=== PATIENT | male | born 1930 | race Caucasian/White ===

== ENCOUNTER → 2017-01-04 | Day surgery (SDC) | payer OTHER ==
[2016-12-30 11:19] VITALS: BMI 25.0
[~2017-01-04] VITALS: Ht 170.2 cm; Wt 75.0 kg
[~2017-01-04] MED LIST: ALFU10TA2 PO; B-COTAB18 PO; BICA50TA2 PO; CALC500C70 PO; CLB200 PO; DULO60CA44 PO; FEXO1TAB46 PO; FINA5TAB PO; FLNIN NAE; FLUO0.0543 TD; FLUT0.15; FURO-85 PO; IPRA0.03; IPRA0.03 INTNAS; LATA0.009 OPB; LEVO75TA5 PO; LIDOCAINE HCL 2% 2 ML VIAL (20MG/ML) ONE; MULT-506 PO; NXM/40 PO; OMEP40CA41 PO; OXYC-57 PO; POTA10CA28 PO; PROPOFOL IV EMULSION 10 MG/ML 20 ML VIAL IV ONE; PSYL48.59 PO; RANI300T2 PO; SIMV40TA2 PO; TRAM-10 PO; WARF5TAB90 PO; [UNRECOGNIZED DRUG - CODE] TD; [UNRECOGNIZED DRUG - OTHER] OPB; coQ 10
--- NOTE | 2017-01-04 14:10 | Endo History and Physical ---
History & Physical Date of Service: January 04, 2017. 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 Past Medical History Atrial Fibrillation, Pacemaker, Reflux, High Cholesterol, Hypertension, Thyroid Disease Past Surgical History Hx Cardiac Surgery: No Hx Internal Defibrillator: No Hx Abdominal Surgery: Yes (COLON RESECTION, INGUINAL HERNIA) Hx Post-Op Nausea and Vomiting: No Hx Cancer Surgery: No Hx Thoracic Surgery: No Hx Orthopedic: Yes (RIGHT TKA) Hx Urinary Tract Surgery: No Family History Esophogeal CA Social History Smoking Status: Never Smoker Hx Substance Use: Yes (SEE MED REC) Hx Alcohol Use: Yes (1 GLASS OF WINE DAILY) Allergies Coded Allergies: No Known Allergies (Verified , 12/30/16) Current Medications Reported Home Medications Medications Dose Route/Sig Max Daily Dose Days Date Category Dose Instructions Vitamin B Complex (B-Complex Vitamins) 1 Tab Tab 1 Tab PO QAM 12/30/16 Reported Os-Edgar 500 Plus D (Calcium/Vitamin D) Tab 1 Tab PO QAM 12/30/16 Reported Multivitamin (Multivitamins) Tab 1 Tab PO QAM 12/30/16 Reported Betoptic-S (Betaxolol Hcl) 144 Drops/10 Ml Susp 1 Drop OPB BID 12/30/16 Reported Xalatan 0.005% Oph Rut (Latanoprost) 0.005 % Rut 1 Drops OPB HS 90 12/30/16 Reported Cymbalta (Duloxetine Hcl) 60 Mg Cap 60 Mg PO QAM 12/30/16 Reported Percocet 5MG/325MG (Oxycodone/Acetaminophen) Tab 1-2 Tablets PO Q4-6H PRN 04/25/14 Reported PAIN Rea (Fexofenadine Hcl) 180 Mg Tab 180 Mg PO DAILY 04/25/14 Reported Ipratropium [place] (Ipratropium [place] (Nasal)) 0.03 % Spr 1 [place] INTNAS BID PRN 04/25/14 Reported Micro-K Ext Rel (Potassium Chloride) 10 Meq Capcr 10 Meq PO QAM 04/25/14 Reported Proscar (Finasteride) 5 Mg Tab 5 Mg PO QAM 02/05/14 Reported Lidex 0.05% (Fluocinonide) Oint 1 Appln TD UD PRN 01/14/14 Reported APPLY TO LEGS NEEDED UNDER HOSE FOR RASH [place]/Fs Scalp (Fluocinolone Acetonide) 118 Ml Oil 1 Appln TD UD 01/14/14 Reported APPLY TO SCALP AFTER BATHING Vitamin B Complex (B-Complex Vitamins) 1 Tab Tab 1 Tab PO QAM 07/08/13 Reported Ultram (Tramadol HCl) 50 Mg Tab 50 Mg PO TID PRN 07/08/13 Reported Nexium (Esomeprazole Magnesium) 40 Mg Capcr 40 Mg PO QAM 07/08/13 Reported Levothyroxine Sodium 75 Mcg Tab 75 Mcg PO QAM 07/08/13 Reported Coumadin (Warfarin Sodium) 5 Mg Tab 5 Mg PO UD 03/13/13 Reported TAKES 0.5TAB 6X WEEKLY TAKES 1 TAB ON SUNDAYS Lasix (Furosemide) 20 Mg Tab 20 Mg PO QAM 12/14/12 Reported Uroxatral (Alfuzosin HCl) 10 Mg Tab 10 Mg PO DAILY 12/14/12 Reported TAKE AFTER A MEAL Zantac (Ranitidine HCl) 300 Mg Tab 300 Mg PO HS 04/05/10 Reported Flonase Nasal [place] * (Fluticasone Propionate) Inha 2 Sprays SURAJ DAILY 07/04/07 Reported Zocor (Simvastatin) 40 Mg Tab 40 Mg PO HS 12/02/08 Reported Celebrex * (Celecoxib) 200 Mg Cap 200 Mg PO QPM 12/02/08 Reported Vital Signs Weight (Kilograms): 75 Height (Feet): 5 Height (Inches): 7 Physical Exam General Appearance: WD/WN, no apparent distress Respiratory/Chest: Respiratory effort: no dyspnea Auscultation: breath sounds normal, CTA except as noted, no wheezing Cardiovascular: Apical Impulse: not displaced Heart Auscultation: RRR, normal S1, normal S2 Abdomen: Bowel Sounds: normal Inspection & Palpation: soft, non-distended Assessment and Plan 86 yo presenting for f/u of advanced colon polyp
[2017-01-04 14:20] VITALS: Ht 170.2 cm; Wt 75.0 kg
--- NOTE | 2017-01-04 15:11 | Anesthesiology Progress Note ---
Anesthesia Post Op Note Date & Time January 04, 2017 at 15:10 Vital Signs Pain Intensity: 0 Vital Signs Past 12 Hours Date Time Temp Pulse Resp B/P Pulse Ox O2 Delivery O2 Flow Rate FiO2 01/04/17 14:28 36.4 88 18 155/98 96 Room Air Notes Mental Status: alert / awake / arousable, participated in evaluation Pt Amnestic to Procedure: Yes Nausea / Vomiting: adequately controlled Pain: adequately controlled Airway Patency, RR, SpO2: stable & adequate BP & HR: stable & adequate Hydration State: stable & adequate Anesthetic Complications: no major complications apparent
--- NOTE | 2017-01-04 15:15 | Discharge Instructions ---
Endoscopy Patient Instructions Date / Procedure(s) Performed January 04, 2017. Colonoscopy Allergy Information Coded Allergies: No Known Allergies (Verified , 12/30/16) Discharge Date / Findings January 04, 2017. Normal post surgical anatomy no polyps diverticuli hemorrhoids Ok to restart coumadin Start daily fiber with metamucil, benefiber, one to two scoops daily to regulate bowels Medication Instructions Stopped Medication(s): COUMADIN LAST DOSE 12/30/16 Provider Instructions Activity Restrictions - No exercising or heavy lifting for 24 hours. - Do not drink alcohol the day of the procedure. - Do not drive a car or operate machinery until the day after the procedure. - Do not make any important decisions or sign important papers in 24 hours after the procedure. Following Day: - Return to full activity which may include returning to work/school. Diet Start your diet with liquids and light foods (jello, soup, juice, toast). Then eat your usual diet if not nauseated. Treatment For Common After Affects For mild abdominal pain, bloating, or excessive gas: - Rest - Eat lightly - Lie on right side Follow-Up Information Follow-up with DR RITESH DUDLEY as scheduled Anesthesia Information What You Should Know You have had a procedure that required some medicine to reduce anxiety and discomfort. This treatment is called moderate sedation. After receiving the treatment, you may be sleepy, but you will be able to breathe on your own. The effects of the treatment may last for several hours. Follow these instructions along with Activity/Diet recommendations noted above: * Do NOT do anything where dizziness or clumsiness would be dangerous. * Rest quietly at home today, then you can be up and about tomorrow. * Have a responsible person stay with you the rest of today. * You may have had an I.V. today. If so, you may take the dressing off later today. Recommendations Call your doctor if: * Trouble breathing * Continuous vomiting for more than 24 hours * Temperature above 101 degrees * Severe abdominal pain or bloating * Pain not relieved by pain medicine ordered * There is increased drainage or redness from any incision * A large amount of rectal bleeding greater than 2-3 tablespoons. (If you had a polyp/s removed or have hemorrhoids, a small amount of blood - from the rectum is to be expected.) * You have any unanswered questions or concerns. IN THE EVENT OF A SERIOUS EMERGENCY, GO TO THE NEAREST EMERGENCY ROOM Your discharge instructions were prepared by provider Robert Thomas. Patient Instructions Signature Page Tip Sheldon Patient (or Guardian) Signature/Date: I have read and understand the instructions given to me by my caregivers. Caregiver/RN/Doctor Signature/Date: The above-named patient and/or guardian has received patient instructions on this date. + Original Patient Signature Page (only) stays with chart. Please make copy for patient.
--- NOTE | 2017-01-04 15:35 | GI REPORT ---
Procedure Date: 01/04/2017 2:01 PM Procedure: Colonoscopy Indications: High risk colon cancer surveillance: Personal history of colonic polyps Medicines: General Anesthesia Complications: No immediate complications. Estimated blood loss: None. Estimated Blood Loss: Estimated blood loss: none. Procedure: Pre-Anesthesia Assessment: - Pre-Anesthesia Assessment: - Prior to the procedure, a History and Physical was performed, and patient medications, allergies and sensitivities were reviewed. The patient's tolerance of previous anesthesia was reviewed. Please see [employer] for complete details. - The risks and benefits of the procedure and the sedation options and risks were discussed with the patient. All questions were answered and informed consent was obtained. - Patient identification and proposed procedure were verified prior to the procedure by the physician and the nurse. The procedure was verified in the pre-procedure area in the procedure room. After obtaining informed consent, the endoscope was passed carefully and meticuously under direct vision and only advanced when the lumen was clearly identified, C02 insuflation was utilized throughout the entirity of the procedure. Throughout the procedure, the patient's blood pressure, pulse, and oxygen saturations were monitored continuously. After I obtained informed consent, the scope was passed under direct vision. Throughout the procedure, the patient's blood pressure, pulse, and oxygen saturations were monitored continuously. The scope was introduced through the anus and advanced to the terminal ileum. The colonoscopy was performed without difficulty. The patient tolerated the procedure well. The quality of the bowel preparation was good. Findings: There was evidence of a prior end-to-side ileo-colonic anastomosis in the ascending colon. This was patent and was characterized by healthy appearing mucosa. The terminal ileum appeared normal. Multiple small-mouthed diverticula were found in the sigmoid colon. Internal hemorrhoids were found during retroflexion. The exam was otherwise without abnormality on direct and retroflexion views. Impression: - Patent end-to-side ileo-colonic anastomosis, characterized by healthy appearing mucosa. - The examined portion of the ileum was normal. - Diverticulosis in the sigmoid colon. - Internal hemorrhoids. - The examination was otherwise normal on direct and retroflexion views. - No specimens collected. Recommendation: - Discharge patient to home (with escort). - Return to referring physician as previously scheduled. - Repeat colonoscopy is not recommended for screening purposes. - Use fiber, for example Citrucel, Fibercon, Konsyl or Metamucil. Robert M Craft, MD 01/04/2017 3:35:03 PM This report has been signed electronically. Note Initiated On: 01/04/2017 2:01 PM I attest to the content of the Intraoperative Record and orders documented therein, exceptions below
[2017-01-04 15:36] VITALS: BP 130/73; PULSE 65; O2SAT 95
== END | disposition home or self-care (01) ==
LOC: C.GI 13:43
PROVIDERS: ATTEND Internal Medicine
DX: Z12.11 Encounter for screening for malignant neoplasm of colon (principal); K57.30 Diverticulosis of large intestine without perforation or abscess without bleeding; K64.8 Other hemorrhoids; I48.91 Unspecified atrial fibrillation; K21.9 Gastro-esophageal reflux disease without esophagitis; E78.00 Pure hypercholesterolemia, unspecified; I10 Essential (primary) hypertension; Z95.0 Presence of cardiac pacemaker; Z79.01 Long term (current) use of anticoagulants; Z96.651 Presence of right artificial knee joint; Z90.49 Acquired absence of other specified parts of digestive tract; Z86.010 Personal history of colon polyps; Z80.0 Family history of malignant neoplasm of digestive organs

== ENCOUNTER → 2017-01-19 | Outpatient (CLI) | payer OTHER ==
[~2017-01-19] MED LIST changes: -LIDOCAINE HCL 2% 2 ML VIAL (20MG/ML) ONE; -PROPOFOL IV EMULSION 10 MG/ML 20 ML VIAL IV ONE
== END | disposition home or self-care (01) ==
LOC: C.PATHSPEC 17:16
PROVIDERS: ATTEND Urology
DX: C61 Malignant neoplasm of prostate (principal)

== ENCOUNTER → 2017-02-01 | Outpatient (CLI) | payer OTHER ==
--- NOTE | 2017-02-01 14:43 | DIAGNOSTIC IMAGING REPORT ---
BONE SCAN WHOLE BODY CLINICAL HISTORY: R97.20 Elevated [id number] Prostate cancer COMPARISON STUDY: CT scan the abdomen pelvis dated 07/08/2013, x-ray of the left shoulder dated 07/08/2013. FINDINGS: The patient was injected with 27.3 mCi of technetium 99m MDP. Three-hour delayed whole body images were acquired. There is increased activity involving the left shoulder, likely degenerative/arthritic basis. There are foci of increased activity within the lower lumbar spine, likely degenerative. There is a photopenic defect within the right knee consistent with a prior knee arthroplasty. There is increased activity within the right wrist the level the first carpometacarpal joint consistent with degenerative changes. There are foci of increased activity within the feet at the level of the first metatarsal phalangeal joints bilaterally. The findings are consistent with degenerative change. There are foci of increased activity within each mid foot. Distribution symmetry is suggestive of degenerative/arthritic change. There are foci of increased activity within the elbows, likely degenerative There are no foci of increased activity viewed as highly suspicious for skeletal metastasis. IMPRESSION: Multifocal areas of increased activity. The overall distribution favors degenerative/arthritic activity. There are no findings viewed as suspicious for skeletal metastasis. Electronically signed by: Luther Rogel M.D. 02/01/2017 2:42 PM Dictated Date/Time: 02/01/2017 2:38 PM
== END | disposition home or self-care (01) ==
LOC: C.NUCL 10:42
PROVIDERS: ATTEND Urology
DX: R97.20 Elevated prostate specific antigen [PSA] (principal)

== ENCOUNTER → 2017-08-03 | Outpatient (CLI) | payer OTHER ==
[~2017-08-03] MED LIST changes: -BICA50TA2 PO; -FLNIN NAE; -IPRA0.03 INTNAS; -OXYC-57 PO; -TRAM-10 PO; -[UNRECOGNIZED DRUG - CODE] TD
[2017-08-03 14:53] VITALS: BP 119/64; PULSE 69; TEMP 36.6; O2SAT 97
--- NOTE | 2017-08-03 16:14 | Radiation Oncology Follow-Up ---
Radiation Oncology Follow-Up Date of Visit Aug 03, 2017. Reason For Visit One-month visit and cancer survivorship care plan Radiation Completion Date 06/23/17 Diagnosis (1) Prostate cancer Status: Acute Onset Date: 01/19/2017 Location: both lobes of the prostate Histology Subtype: adenocarcinoma Stage: ll Permanent Comment: Lower urinary tract symptoms, on Proscar, PSA 7.5 (adjusted) Status post ultrasound-guided biopsies 01/19/2017 Adenocarcinoma [place] 3+3, 4+3, 4+4 and 4+5 Prostate volume 18 Prostate density 0.441 Initiation of hormonal suppression 04/04/2017, planned for 18-28 months Status post completion of radiation therapy 06/23/2017. He received 8100 cGy Last Edited By: Odalys Matias on Aug 03, 2017 16:09 History of Present Illness Mr. Sheldon has been followed by Dr. Ortiz in urology. More recently, Dr. Ortiz did perform a prostate examination which did reveal a enlarged prostate gland with a firm right lobe concerning for malignancy. The patient did have a recent PSA on 11/17/2016 which is 3.75 (double to 7.5 due to Proscar). His most recent PSA previously was 1.36 on 07/11/2012. Dr. Ortiz did recommend a transrectal ultrasound-guided biopsy of the prostate gland and the patient agreed. The patient under went a transrectal ultrasound-guided biopsy of the prostate gland on 01/19/2017 which revealed prostate cancer involving 7/8 cores. The highest Micha score was Micha 4+5 and perineural invasion was identified. The prostate gland measured 18 cc from transrectal ultrasound during the procedure. The patient underwent a bone scan on 02/01/2017 which revealed no evidence of distant metastatic disease. Dr. Ortiz discuss treatment options including surgery and radiation therapy and recommended further discussion with urology and radiation oncology. We are now seeing the patient in consultation discuss role of radiation therapy. In general, the patient is doing relatively well. His urinary IPSS score is 16/ 35. He denies any hematuria. He has a history of rectal hemorrhoids. 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 The patient is scheduled to see Dr. Aquilino Bai from urology to discuss the role of surgery. He ultimately made a decision to undergo hormone suppression and radiation therapy. He received VMAT external beam treatment that was completed 2016. He received 8100 cGy Interim History He continues to have urinary symptoms over this past month. He gave an AUA score of 23. At the end of treatment he had an AUA score of 18. He continues on Uroxatral. He also continues on finasteride. He completed and expanded prostate cancer index composite for clinical practice and gave a score of 2 of 12 urinary incontinence symptoms. He gave a score of 7 of 12 in urinary irritation symptoms. He gave a score of 6 of 12 bowel symptoms. He gave a score of 7 of 12 in sexual symptoms. He gave a score of 6 of 12 in hormonal vitality symptoms. His total was 28 of 60. Allergies Coded Allergies: No Known Allergies (Verified , 12/30/16) Home Medications Scheduled Alfuzosin Hcl (Uroxatral), 10 MG PO DAILY B-Complex Vitamins (Vitamin B Complex), 1 TAB PO QAM Betaxolol Hcl (Betoptic-S), 1 DROP OPB BID Calcium/Vitamin D (Os-Edgar 500 Plus D), 1 TAB PO QAM Celecoxib (Celebrex *), 200 MG PO QPM Duloxetine Hcl (Cymbalta), 60 MG PO QAM Esomeprazole Magnesium (Nexium), 40 MG PO QAM Fexofenadine Hcl (Rea), 180 MG PO DAILY Finasteride (Proscar), 5 MG PO QAM Fluticasone Propionate (Nasal) (Flonase Allergy Relief), 2 SPRAYS DAILY Furosemide (Lasix), 20 MG PO QAM Ipratropium [place] (Nasal) (Ipratropium Cocoa), 1 SPRAY once or twice a day Latanoprost (Xalatan 0.005% Oph Rut), 1 DROPS OPB HS Levothyroxine Sodium (Levothyroxine Sodium), 75 MCG PO QAM Multivitamin (Multivitamin), 1 TAB PO QAM Omeprazole (Prilosec), 1 CAP PO DAILY Potassium Chloride (Micro-K Ext Rel), 10 MEQ PO QAM Psyllium (Metamucil), 1 TSP PO DAILY Ranitidine (Zantac), 300 MG PO HS Simvastatin (Zocor), 40 MG PO HS Warfarin Sodium (Coumadin), 5 MG PO UD [coQ 10], DAILY Scheduled PRN Fluocinonide 0.05% (Lidex 0.05%), 1 APPLN TD UD PRN for RASH Review of Systems Gastrointestinal: Symptoms: WNL Oral: Symptoms: No Problems Other Oral Symptoms: Trouble swallowing over the past year Respiratory: Symptoms: WNL, Dry Cough, SOB With Exertion Other Respiratory: READ (Stairs) Occsaional Cough - PCP knows about Urinary: Symptoms: Nocturia, Frequency Comments: Daily Freq q 30 min, NOcturia x 1, See AUA & EPIC Skin: Symptoms: No Problems Physical Exam Vital Signs Date Time Temp Pulse Resp B/P (MAP) Pulse Ox O2 Delivery O2 Flow Rate FiO2 08/03/17 14:53 36.6 69 16 119/64 97 Fatigue: None General Appearance: no apparent distress Eyes: normal inspection, EOMI ENT: normal ENT inspection, hearing grossly normal Respiratory/Chest: lungs clear, no respiratory distress, no accessory muscle use Cardiovascular: regular rate, rhythm, no gallop, no murmur Extremities: no pedal edema Neurologic/Psychiatric: no motor/sensory deficits, alert, normal mood/affect Skin: warm/dry Pain Management Pain Rating (0-10): 0 Pain Management Plan He denies pain and therefore requires no pain management. Laboratory Studies Test 08/03/17 15:00 Prostate Specific Antigen < 0.010 ng/ml (0.000-4.000) Assessment & Plan Plan: The PSA was drawn today. Results were given prior to his leaving the office. He will continue on the Uroxatral and finasteride. He'll be due for Lupron the fourth week of October. This has been scheduled. We asked him to return to our office in 6 months. We discussed that some of these urinary frequency is related to his diuretic. He'll also take the Uroxatral after eating supper. This may help to improve the absorption of the medication. He may call our office if he has any questions or concerns. Today we completed a cancer survivorship care plan. A copy of the document was given to the patient. He was also given a survivorship booklet. Assessment & Plan (Attending) ADDENDUM: I agree with note created by Odalys Matias PA-C. I reviewed the patient's chart and information with her. I have examined and evaluated the patient. I reviewed relevant clinical information and answered the patient's and /or family's questions. BAKER PIE Total Time In Follow-Up I spent 20 minutes speaking to the patient and performing examination. I spent 20 minute reviewing information, preparing the survivorship document, and completing this note. Total Time (Attending) In Follow-Up I spent 15 minutes examining and counseling the patient. BAKER PIE Copy To Darien Ortiz M.D.; Josh Ann M.D.
== END | disposition home or self-care (01) ==
LOC: C.ONC 14:48
PROVIDERS: ATTEND Physician Assistant Medical
DX: Z08 Encounter for follow-up examination after completed treatment for malignant neoplasm (principal); Z92.3 Personal history of irradiation; Z85.46 Personal history of malignant neoplasm of prostate

== ENCOUNTER → 2018-02-08 | Outpatient (CLI) | payer OTHER ==
[~2018-02-08] MED LIST changes: -ALFU10TA2 PO; +BICA50TA40 PO; +DOCU100C31 PO; +DORZ2SOL19 OP; -FEXO1TAB46 PO; -FLUO0.0543 TD; -FURO-85 PO; +GABA-112 PO; -IPRA0.03; +LEUPROLIDE ACETATE 7.5 MG KIT IM ONE; -NXM/40 PO; -POTA10CA28 PO; -PSYL48.59 PO; -RANI300T2 PO; +SALONPAS TOP; +TAMS0.4C38 PO; +WARF2TAB PO; -WARF5TAB90 PO
--- NOTE | 2018-04-07 08:59 | CODING QUERY NO DIAGNOSIS ---
: 1928 TREATMENT RENDERED WITHOUT A DIAGNOSIS To promote full compliance with coding requirements relating to patient care, physician participation is requested in all cases of sidewalk inspector uncertainty. Please assist us with providing a diagnosis/symptom for the test(s) below: A diagnosis/symptom was not documented on your Order. A valid diagnosis/symptom is required to bill all insurances. Please remember that we are unable to code a diagnosis of rule out, probable, possible, questionable, or suspected. Tests that require a diagnosis: DOS: 02/08/18 Rad Therapy chemo inject DIAGNOSIS: Provider Signature: Date: [facility] Once completed, please kindly fax back to [phone] For questions please call [phone]
== END | disposition home or self-care (01) ==
LOC: C.ONC 15:00
PROVIDERS: ATTEND Physician Assistant Medical
DX: Z51.0 Encounter for antineoplastic radiation therapy (principal); C61 Malignant neoplasm of prostate

== ENCOUNTER → 2018-03-14 | Outpatient (CLI) | payer OTHER ==
[~2018-03-14] MED LIST changes: +LEUPROLIDE ACETATE 22.5 MG KIT IM ONE; -LEUPROLIDE ACETATE 7.5 MG KIT IM ONE
--- NOTE | 2018-05-01 09:53 | CODING QUERY NO DIAGNOSIS ---
: 1928 TREATMENT RENDERED WITHOUT A DIAGNOSIS To promote full compliance with coding requirements relating to patient care, physician participation is requested in all cases of crude tester uncertainty. Please assist us with providing a diagnosis/symptom for the test(s) below: A diagnosis/symptom was not documented on your Order. A valid diagnosis/symptom is required to bill all insurances. Please remember that we are unable to code a diagnosis of rule out, probable, possible, questionable, or suspected. Tests that require a diagnosis due to no documentation in [employer] DOS: 03/14/2018 Rad therapy Chemo/injection DIAGNOSIS: Provider Signature: Date: Thank you Gloria Hoskins [facility] Health Information Management Once completed, please kindly fax back to [phone] For questions please call [phone]
== END | disposition home or self-care (01) ==
LOC: C.ONC 12:57
PROVIDERS: ATTEND Physician Assistant Medical
DX: Z51.0 Encounter for antineoplastic radiation therapy (principal); C61 Malignant neoplasm of prostate